=== PATIENT | female | born 1980 | race Caucasian/White ===

== ENCOUNTER 2022-01-10 19:10 | Emergency (ER) | payer OTHER ==
[~2022-01-10] VITALS: Ht 162.6 cm; Wt 93.2 kg
[~2022-01-10 19:10] MED LIST: DARVOCET N 101 UDTAB PO; EFFEXOR XR75 MG PO; PROAIR HFA0.09 MG/AC IH; TESSALON P100 MG/CAP PO
[2022-01-10 19:50] LABS: BASO % 0.1 % (0.0-2.0); EOS % 0.1 % (0.0-4.0); GRAN # 5.4 K/mm3 (1.4-6.5); GRAN % 69.3 % (42.2-75.2); HEMATOCRIT 37.8 % (37.0-47.0); HEMOGLOBIN 13.5 g/dl (12.5-16.0); LYMPH % 25.6 % (20.0-51.0); MEAN CELL VOLUME 87 fl (80.0-100.0); MEAN CORPUSCULAR HEMOGLOBIN 31 pg (27-31); MEAN CORPUSCULAR HGB CONC 36 g/dl (33.0-37.0); MONO # 0.4 K/mm3 (0.1-0.6); MONO % 4.5 % (1.7-9.3); PLATELET COUNT 230 K/mm3 (130-400); RED BLOOD COUNT 4.37 M/mm3 (4.10-5.30); REDCELL DISTRIBUTION WIDTH-CV 13.2 % (11.5-14.5)
[2022-01-10 20:05] LABS: ALANINE AMINOTRANSFERASE 13 U/L (0-55); ALBUMIN 3.5 gm/dL (3.5-5.0); ALKALINE PHOSPHATASE 87 U/L (40-150); ANION GAP 15 mmol/L (7-16); AST,SGOT 11 U/L (5-34); BILIRUBIN,TOTAL 0.3 mg/dL (0.2-1.2); BLOOD UREA NITROGEN 8 mg/dL (7-19); CALCIUM 9.1 mg/dL (8.4-10.2); CARBON DIOXIDE 26 mmol/L (22-29); CHLORIDE 102 mmol/L (98-107); CREATININE, serum 0.75 mg/dL (0.57-1.11); GLUCOSE 135 mg/dL (70-99); SODIUM 143 mmol/L (136-145); TOTAL PROTEIN 6.8 gm/dL (6.2-8.1)
[2022-01-10 20:07] LABS: POTASSIUM 2.7 mmol/L (3.5-4.5)
[2022-01-10 20:26] LABS: TSH w REFLEX 1.248 uIU/mL (0.350-4.940)
[2022-01-10 20:30] LABS: TROPONIN-I < 0.010 ng/mL (0.00-0.033)
[2022-01-10 21:01] VITALS: BP 149/106; PULSE 66; TEMP 99
== END 2022-01-10 21:10 | disposition home or self-care (01) ==
LOC: COL.ER 19:10
PROVIDERS: Nurse Practitioner
DX: E87.6 Hypokalemia (principal); R06.00 Dyspnea, unspecified; F17.200 Nicotine dependence, unspecified, uncomplicated; Z95.818 Presence of other cardiac implants and grafts; Z28.311 Partially vaccinated for COVID-19